=== PATIENT | male | born 1970 | race Caucasian/White ===

== ENCOUNTER 2017-10-04 12:43 | Emergency (ER) | payer BC, OTHER ==
[~2017-10-04] VITALS: Ht 170.2 cm; Wt 82.6 kg
[2017-10-04 12:55] VITALS: TEMP 36.9; Ht 170.2 cm; Wt 82.6 kg
[2017-10-04] MEDS ORDERED: XYLOCAINE 1%/SOD BICARB 20 ML VIAL INFIL ONE (13:15)
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
[2017-10-04] MEDS ORDERED: DIPHTHERIA/TETANUS/PERTUSSIS 0.5 ML SYR/VIAL IM. ONE (14:30)
[2017-10-04 15:03] VITALS: BP 140/90; PULSE 91; O2SAT 98
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
== END 2017-10-04 15:05 | disposition home or self-care (01) ==
LOC: C.EDB 12:44 → C.EDD 15:05
DX: S01.81XA Laceration without foreign body of other part of head, initial encounter (principal); S60.221A Contusion of right hand, initial encounter; S60.222A Contusion of left hand, initial encounter; V98.3XXA Accident to, on or involving ski lift, initial encounter; R40.2412 Glasgow coma scale score 13-15, at arrival to emergency department; R03.0 Elevated blood-pressure reading, without diagnosis of hypertension

== ENCOUNTER 2017-10-10 06:58 | Emergency (ER) | payer OTHER ==
[~2017-10-10] VITALS: Ht 170.2 cm; Wt 81.6 kg
[2017-10-10 07:00] VITALS: BP 125/86; PULSE 76; TEMP 36.8; O2SAT 97; Ht 170.2 cm; Wt 81.6 kg
--- NOTE | 2017-10-10 07:19 | EMERGENCY ROOM VISIT NOTE ---
History First contact with patient: 07:03 Chief Complaint: SUTURE/STAPLE REMOVAL Stated Complaint: STITCH REMOVAL Nursing Triage Summary: pt has sutures in forehead has been 6 days . 8 sutures History of Present Illness The patient is a 47 year old male who presents to the Emergency Room for suture removal from a forehead laceration that was repaired by me 6 days ago. The patient denies any wound complications. Review of Systems Noncontributory Past Medical/Surgical History Medical Problems: (1) No significant past medical history Surgical Problems: (1) No history of previous surgery Family History No significant family history Social History Smoking Status: Never Smoker Alcohol Use: occasionally Marital Status: single Occupation Status: employed Current/Historical Medications No Active Prescriptions or Reported Meds Physical Exam Vital Signs Date Time Temp Pulse Resp B/P (MAP) Pulse Ox O2 Delivery O2 Flow Rate FiO2 10/10/17 07:00 36.8 76 18 125/86 97 Room Air Physical Exam HEENT: Examination shows a well-healed laceration without any overriding erythema, fluctuance, drainage or diastases. All sutures were removed without any complications. Medical Decision & Procedures ED Course The patient was provided additional verbal wound care instructions, including use of vitamin E oil and a high SPF factor sunblock to minimize scar darkening. Medical Decision Blood Pressure Screening Patient's blood pressure: Normal blood pressure Impression Primary Impression: Encounter for removal of sutures Additional Impression: Forehead laceration Departure Information Prescriptions No Active Prescriptions or Reported Meds Referrals Hang Ch M.D. (PCP) Patient Instructions [facility] Problem Qualifiers Additional Impression: Forehead laceration Encounter type: subsequent encounter Qualified Codes: S01.81XD - Laceration without foreign body of other part of head, subsequent encounter
== END 2017-10-10 07:25 | disposition home or self-care (01) ==
LOC: C.EDB 06:59 → C.EDA 07:25
DX: S01.81XD Laceration without foreign body of other part of head, subsequent encounter (principal); V98 Other specified transport accidents; Z48.02 Encounter for removal of sutures

== ENCOUNTER → 2018-05-08 | Outpatient (CLI) | payer OTHER ==
[2018-05-08 12:13] LABS: BASO % 0.3 %; BASO ABS # 0.02 K/uL (0-0.2); EOS % 0.5 %; EOS ABS # 0.03 K/uL (0-0.5); HEMATOCRIT 46.5 % (42-52); HEMOGLOBIN 15.8 g/dL (14.0-18.0); IG# 0.01 K/uL (0.00-0.02); LYMPH % 14.9 %; LYMPH ABS # 0.94 K/uL (1.2-3.4); MEAN CELL VOLUME 92.3 fL (80-100); MEAN CORPUSCULAR HEMOGLOBIN 31.3 pg (25-34); MEAN PLATELET VOLUME 11.1 fL (7.4-10.4); MONO % 8.7 %; MONO ABS # 0.55 K/uL (0.11-0.59); NEUT % 75.4 %; NEUT ABS # 4.77 K/uL (1.4-6.5); PLATELET COUNT 242 K/uL (130-400); RED CELL DISTRIBUTION WIDTH CV 12.5 % (11.5-14.5); RED CELL DISTRIBUTION WIDTH SD 42.3 fL (36.4-46.3); WHITE BLOOD COUNT 6.32 K/uL (4.8-10.8)
[2018-05-08 12:32] LABS: HEMOGLOBIN A1C 5.5 % (4.5-5.6)
[2018-05-08 12:39] LABS: BLOOD UREA NITROGEN 23 mg/dl (7-18); CALCIUM 8.7 mg/dl (8.5-10.1); CARBON DIOXIDE 27 mmol/L (21-32); CHOLESTEROL 246 mg/dl (0-200); CREATININE 1.22 mg/dl (0.60-1.40); GLUCOSE 83 mg/dl (70-99); LDL CHOLESTEROL CALCULATED 179 mg/dl; POTASSIUM 3.8 mmol/L (3.5-5.1); SODIUM 139 mmol/L (136-145)
== END | disposition home or self-care (01) ==
LOC: C.LAB1850 10:08
PROVIDERS: ATTEND Internal Medicine
DX: E78.00 Pure hypercholesterolemia, unspecified (principal)

== ENCOUNTER 2020-08-29 23:11 | Observation (INO) ==
[2020-08-29] MEDS ORDERED: KETOROLAC TROMETHAMINE 15 MG/ML VIAL IV STA (23:15)
[2020-08-29] MEDS ORDERED: SODIUM CHLORIDE 0.9% 1000ML 500 ML IV ONE (23:24)
[2020-08-29] MEDS ORDERED: ONDANSETRON INJ 2 MG/ML 2 ML VIAL IV STA (23:24)
--- NOTE | 2020-08-29 23:26 | Emergency Department Note ---
History of Present Illness General Chief complaint: Flank Pain Stated complaint: FLANK PAIN Time Seen by Provider: 08/29/20 23:15 History of Present Illness Maximum Pain Intensity: 9 This 50-year-old presents to the ER complaining of sudden onset of left flank pain Location: Left flank Quality: Painful Severity: Moderate Duration: Tonight Timing: Tonight Context: Patient was concerned and came in Modifying factors: better with nothing; worse with nothing Patient is a history of kidney stones. No urologist. No history of lithotripsy or stent placement the past. Patient denies chest pain, dyspnea, fevers, flulike illness, testicular or penile pain. Home Medications Home Medications Medication Instructions Recorded Confirmed Type atorvastatin 20 mg tablet 20 mg PO HS #90 tab 08/17/19 08/29/20 Rx Allergies Allergy/AdvReac Type Severity Reaction Status Date / Time No Known Allergies Allergy Unverified 08/29/20 23:24 Past Med/Surg History Medical History (Updated 08/30/20 @ 01:31 by Gary Mohr MD) Forehead laceration Hypercholesterolemia Hyperglycemia Surgical History (Updated 08/29/20 @ 23:25 by Porsche Cardenas PA-C) No pertinent past surgical history Social History Smoking Status: Never smoker Preferred Language: Egyptian Feels Safe at Home: Yes Review of Systems A total of 10 systems reviewed and were otherwise negative Physical Exam Vital Signs Vital Signs - 24 hr 08/29/20 23:12 08/29/20 23:50 08/30/20 01:39 Temperature 36.5 C Temperature Source Oral Pulse Rate 79 Pulse Rate [Right Finger] 90 Respiratory Rate 22 16 Respiratory Effort / Characteristics Non-Labored Spontaneous Respiratory Depth Normal Normal Blood Pressure 168/95 H Blood Pressure [Right Arm] 148/87 H Blood Pressure Mean 119 Blood Pressure Mean [Right Arm] 107 Blood Pressure Position [Right Arm] Lying Pulse Oximetry 98 98 98 Oxygen Delivery Method Room Air Room Air Room Air Sepsis New/Unexplained Change in Mental Status N/A Sepsis Action Taken by Nursing No Action Required VITALS: Vitals are noted on the nurse's note and reviewed by myself. Vital signs stable. GENERAL: Pleasant male who appears in pain, in no acute distress, nondi aphoretic, well-developed well-nourished. SKIN: Capillary reflex less than 2 seconds. HEENT: Normocephalic. PERRLA. EOMI. Nares patent. Mucous membranes moist. Neck is supple without nuchal rigidity. HEART: Regular rate and rhythm without murmurs gallops or rubs. LUNGS: Clear to auscultation bilaterally without wheezes, rales or rhonchi. No retractions or accessory muscle use. ABDOMEN: Positive bowel sounds x 4. Normal tympanic percussion. Soft, nontender, without masses or organomegaly. Pastor sign negative. No guarding or rebound tenderness. No CVA tenderness MUSCULOSKELETAL: No gross musculoskeletal defects. NEURO: Patient was alert and oriented to person place and time. No focal neurological deficits. Course Administered Medications Discontinued Medications Sodium Chloride (Nss 1000ml) 500 mls @ 999 mls/hr IV .Q31M ONE Stop: 08/29/20 23:54 Last Infusion: 08/30/20 01:10 Dose: 0 mls/hr Documented by: [id number] Admin: 08/29/20 23:30 Dose: 999 mls/hr Documented by: [id number] Ceftriaxone Sodium (Rocephin) 2,000 mg in 70 mls @ 140 mls/hr IV NOW STA Stop: 08/30/20 01:33 Last Admin: 08/30/20 01:15 Dose: 140 mls/hr Documented by: [id number] Ketorolac Tromethamine (Ketorolac Tromethamine 15 Mg/Ml Vial) 10 mg IV NOW STA Stop: 08/29/20 23:16 Last Admin: 08/29/20 23:29 Dose: 10 mg Documented by: [id number] Morphine Sulfate (Morphine Sulfate 4 Mg/Ml 1 Ml Carp\Vial) 4 mg IV NOW STA Stop: 08/30/20 01:05 Last Admin: 08/30/20 01:15 Dose: 4 mg Documented by: [id number] Ondansetron HCl (Ondansetron Inj 2 Mg/Ml 2 Ml Vial) 4 mg IV NOW STA Stop: 08/29/20 23:25 Last Admin: 08/29/20 23:34 Dose: 4 mg Documented by: [id number] Tamsulosin HCl (Tamsulosin Hcl 0.4 Mg Cap) 0.4 mg PO NOW ONE Stop: 08/30/20 01:06 Last Admin: 08/30/20 01:15 Dose: 0.4 mg Documented by: [id number] Medical Decision Making Medical Records Attestation: I reviewed the patient's medical records. Home Medications Current Medication List: was personally reviewed by me Laboratory Data Attestation: I reviewed the patient's lab results. Result diagrams: 08/29/20 23:28 08/29/20 23:28 Lab Results 08/29/20 08/29/20 08/29/20 Range/Units 23:24 23:28 23:28 WBC 10.13 (4.8-10.8) K/uL RBC 4.94 (4.7-6.1) M/uL Hgb 15.7 (14.0-18.0) g/dL Hct 46.6 (42-52) % MCV 94.3 (80-100) fL MCH 31.8 (25-34) pg MCHC 33.7 (32-36) g/dL RDW Std Deviation 41.6 (36.4-46.3) fL RDW Coeff of Carlos 12.2 (11.5-14.5) % Plt Count 267 (130-400) K/uL MPV 10.3 (7.4-10.4) fL Immature Gran % (Auto) 0.3 % Neut % (Auto) 76.7 % Lymph % (Auto) 14.7 % [place] % (Auto) 7.3 % Eos % (Auto) 0.7 % Baso % (Auto) 0.3 % Neut # (Auto) 7.77 H (1.4-6.5) K/uL Lymph # (Auto) 1.49 (1.2-3.4) K/uL [place] # (Auto) 0.74 H (0.11-0.59) K/uL Eos # (Auto) 0.07 (0-0.5) K/uL Baso # (Auto) 0.03 (0-0.2) K/uL Immature Gran # (Auto) 0.03 H (0.00-0.02) K/uL Sodium 139 (136-145) mmol/L Potassium 3.3 L (3.5-5.1) mmol/L Chloride 104 (98-107) mmol/L Carbon Dioxide 28 (21-32) mmol/L Anion Gap 7.0 (3-11) BUN 22 H (7-18) mg/dl Creatinine 1.65 H (0.6-1.4) mg/dl Est Cr Clr Drug Dosing 54.6 ml/min Est GFR ( Amer) 55.3 Est GFR (Non-Af Amer) 47.7 BUN/Creatinine Ratio 13.3 (10-20) Glucose 179 H (70-99) mg/dl Calcium 9.1 (8.5-10.1) mg/dl Total Bilirubin 0.6 (0.2-1) mg/dl AST 21 (15-37) U/L ALT 54 (12-78) U/L Alkaline Phosphatase 57 (45-117) U/L Total Protein 7.8 (6.4-8.2) gm/dl Albumin 4.2 (3.4-5.0) gm/dl Globulin 3.6 (2.5-4.0) gm/dl Albumin/Globulin Ratio 1.2 (0.9-2) Urine Color Yellow Urine Appearance Slightly Cloudy (Clear) Urine pH 5.5 (4.5-7.5) Ur Specific [place] >= 1.030 (1.000-1.030) Urine Protein 2+ H (Negative) Urine Glucose (UA) Negative (Negative) Urine Ketones Trace H (Negative) Urine Blood 3+ H (Negative) Urine Nitrite Negative (Negative) Urine Bilirubin Negative (Negative) Urine Urobilinogen Negative (Negative) Ur Leukocyte Esterase Negative (Negative) Urine RBC >30 H (0-4) /hpf Urine WBC 5-10 H (0-5) /hpf Ur Epithelial Cells 5-10 H (0-5) /lpf Calcium Oxalate Crystal Present A (None Prsent) Urine Bacteria 1+ H (Negative) Urine Mucus Present A (None Prsent) Imaging Data Attestation: I personally reviewed and interpreted this imaging study as follows: MDM Narrative Prior records/ancillary studies reviewed. Triage Nursing notes reviewed. The patient's history was concerning for left flank pain. Differential diagnosis: Etiologies such as renal colic, appendicitis, diverticulitis, mesenteric ischemia, aortic pathology, infections, inflammatory bowel disease, PUD, biliary pathology, UTI, as well as others were entertained. Physical examination findings: As above. ER treatment provided: Zofran, Toradol, IV fluids, Rocephin, morphine, Flomax On reassessment the patient felt better. Diagnostic interpretation by me: The labs revealed elevated creatinine 1.63. Urinalysis revealed hematuria and white blood cells with +1 bacteria concerning for possible infection Imaging studies: CT ABDOMEN & PELVIS Without Contrast: Mild left hydroureteronephrosis with 4 x 6 mm obstructing calculus in the distal left ureter just before the UVJ. Radiologist: Aneesh Nolen MD Consultation: A consultation was placed with Dr. Ledezma, hospitalist. The case was discussed and diagnostics were reviewed. The patient was evaluated in the ER for further treatment. It appears that the patient has isolated renal colic from a left sided stone with concerns for UTI. Patient started antibiotics. Medicine was consulted. H e will be evaluated for possible admission. No prior urine culture. He was afebrile nontoxic. By the evaluation outlined above emergent etiologies such as appendicitis, diverticulitis, mesenteric ischemia, aortic pathology, inflammatory bowel disease, PUD, biliary pathology, as well as others were deemed relatively unlikely. The pt informed about the findings as listed above. All questions were answered and pleased with the treatment. The chart was completed utilizing [employer] Speech voice recognition software. Grammatical errors, random word insertions, pronoun errors, and incomplete sentences are an occassional consequence of this system due to software limitations, ambient noise, and hardware issues. Any formal questions or concerns about the content, text, or information contained within the body of this dictation should be directly addressed to the physician grooming assistant for clarification. Impression & Plan Renal colic on left side, Ureterolithiasis, Acute UTI Discharge Plan Visit Data Chief Complaint: Flank Pain Stated Complaint: FLANK PAIN ED Provider: Cari Berrios ED Midlevel Provider: Porsche Cardenas Discharge Problem: Renal colic on left side, Ureterolithiasis, Acute UTI Patient Disposition: Admitted As Inpatient Condition: Good Forms Stand Alone Forms: My [employer] Prescriptions Prescriptions: No Action atorvastatin 20 mg tablet 20 mg PO HS Qty: 90 RF: 3 Referrals Referrals: Hang Ch MD [Primary Care Provider] -
[2020-08-29 23:31] LABS: Appearance Urine Slightly Cloudy (Clear); Blood Urine 3+ (Negative); Color Urine Yellow; Glucose Urine UA Negative (Negative); Ketones Urine Trace (Negative); Leukocyte Esterase Urine Negative (Negative); Nitrite Urine Negative (Negative); Protein Urine 2+ (Negative); Specific Gravity Urine >= 1.030 (1.000-1.030); Urobilinogen Urine Negative (Negative); pH Urine 5.5 (4.5-7.5)
[2020-08-29 23:42] LABS: Basophils # (auto) 0.03 K/uL (0-0.2); Basophils % (auto) 0.3 %; Eosinophils # (auto) 0.07 K/uL (0-0.5); Eosinophils % (auto) 0.7 %; Hematocrit (blood only) 46.6 % (42-52); Hemoglobin 15.7 g/dL (14.0-18.0); Immature Granulocytes # (auto) 0.03 K/uL (0.00-0.02); Immature Granulocytes % (auto) 0.3 %; Lymphocytes # (auto) 1.49 K/uL (1.2-3.4); Lymphocytes % (auto) 14.7 %; Mean Corpuscular Hemoglobin 31.8 pg (25-34); Mean Corpuscular Hgb Conc 33.7 g/dL (32-36); Mean Corpuscular Volume 94.3 fL (80-100); Mean Platelet Volume 10.3 fL (7.4-10.4); Monocytes # (auto) 0.74 K/uL (0.11-0.59); Monocytes % (auto) 7.3 %; Neutrophils # (auto) 7.77 K/uL (1.4-6.5); Neutrophils % (auto) 76.7 %; Platelet Count 267 K/uL (130-400); RDW Coefficient of Variation 12.2 % (11.5-14.5); RDW Standard Deviation 41.6 fL (36.4-46.3); Red Blood Count 4.94 M/uL (4.7-6.1); White Blood Count 10.13 K/uL (4.8-10.8)
[2020-08-29 23:47] LABS: Bilirubin Urine Negative (Negative); Ictotest Urine Negative (Negative)
[2020-08-29 23:51] LABS: Calcium Oxalate Crystals Urine Present (None Prsent); RBC Urine >30 /hpf (0-4)
[2020-08-29 23:52] LABS: Bacteria Urine 1+ (Negative); Mucus Urine Present (None Prsent)
[2020-08-30 00:03] LABS: Albumin Level 4.2 gm/dl (3.4-5.0); BUN Creatinine Ratio 13.3 (10-20); Calcium 9.1 mg/dl (8.5-10.1); Creatinine Clr Calc Pharmacy 54.6 ml/min; Est GFR (African American) 55.3; Est GFR (Non-African American) 47.7; Potassium 3.3 mmol/L (3.5-5.1)
[2020-08-30 00:06] LABS: Albumin Globulin Ratio 1.2 (0.9-2); Bilirubin,Total 0.6 mg/dl (0.2-1); Globulin 3.6 gm/dl (2.5-4.0); Total Protein 7.8 gm/dl (6.4-8.2)
[2020-08-30] MEDS ORDERED: cefTRIAXone SODIUM 2,000 MG/70 ML BAG IV STA (01:04)
[2020-08-30] MEDS ORDERED: MoRPHine SULFATE 4 MG/ML 1 ML CARP\\VIAL IV STA (01:04)
[2020-08-30] MEDS ORDERED: TAMSULOSIN HCL 0.4 MG CAP PO ONE (01:05)
--- NOTE | 2020-08-30 01:34 | History & Physical Report ---
Date of Service August 30, 2020 Assessment & Plan (1) Left nephrolithiasis: Jose Ramon is a 50-year-old male with a past medical history of kidney stones, hyperlipidemia, and elevated blood glucose who presented to the ED with left- sided flank pain. Left nephrolithiasis with hydronephrosis CT A/P: Mild left hydroutero nephrosis with 4 x 6 mm obstructing calculus in distal left ureter just proximal to the UVJ. No leukocytosis Creatinine acutely elevated as below UA with bacteria, calcium oxalate crystals, and blood UC pending Rocephin given in ED. Continue empiric Rocephin Urology consult for definitive management Flomax Hydromorphone 0.25 every 3 hours as needed Patient may benefit from a thiazide Hyperglycemia Glucose 179 on admission A1c pending No history of diabetes SSI weight-based Hyperlipidemia Continue atorvastatin 20 mg daily No other chronic medical conditions COVID-19 screening: No signs or symptoms of COVID-19, denies Covid exposure. Covid rapid ordered in anticipation of potential cystoscopy. DVT prophylaxis: SCDs, hold pharmacal prophylaxis for potential cystoscopy. FEN GI: N.p.o., NSS 125 cc/h CODE STATUS: Full code Disposition: Medical/surgical History of Present Illness Chief Complaint: Flank pain Primary Care Provider: Hang Ch MD Jose Ramon is a 50-year-old male with a past medical history of kidney stones, hyperlipidemia, and elevated blood glucose who presented to the ED with left- sided flank pain. Mr. Min reports around 8pm he developed sudden acute pain in his L back and flank and had difficulty urinating. Pain persisted for 2 hours and prompted him to come in for evaluation. He tried straining his urine with the strainer from his last stone, and though the urine was mostly yellow with maybe some pink. Has had some tingling/odd sensation when urinating with some stinger. No fevers or chills. Takes a statin for HLD, no other medications or chronic medical prob lems. No chest pain, chest pressure, palpiations, shortness of breath, cough, diarrhea, constipation, sinus congestion, change in taste or smell, or headache. Has a slightly dry mouth. mild nausea from pain, no vomiting. Similar episode: thinks he had a similar episode 1 year ago. Was seen on CT-Scan Stone disappeared/passed without intervention and has been well without pain until now, Tobacco: None. EtoH: 3x per week, glass of wine dinner. No recreational drugs or marijuana. Living Situation: Single, has his son 50% of the time. No sick contacts. No contact with covid positive person. Allergies: NKDA Medical history: As above Medications: Atorvastatin, no other medicines CODE STATUS: Full code Allergies Allergy/AdvReac Type Severity Reaction Status Date / Time No Known Allergies Allergy Unverified 08/29/20 23:24 Home Medications Home Medications Medication Instructions Recorded Confirmed Type atorvastatin 20 mg tablet 20 mg PO HS #90 tab 08/17/19 08/29/20 Rx Past Med/Surg History Medical History Forehead laceration Hypercholesterolemia Hyperglycemia Surgical History No pertinent past surgical history Social History Smoking Status: Never smoker Second Hand Exposure: No; Do You Dip or Chew Tobacco: No; Tobacco Cessation Education Requested by Patient: No Hx Alcohol Use: Yes Hx Substance Use: No Preferred Language: Nigerien Communication Ability: Effective Delivery Stock Clerk Required: No Beliefs That Will Affect Care: None Current Living Situation: Family Other Information That Helps Us Care for You: No Feels Safe at Home: Yes Safety Concerns: Feels Safe At This Time Assistive Devices: None Review of Systems Review of Systems: All systems reviewed & are unremarkable except as noted in HPI & below Physical Exam Physical Exam: General: A&Ox3. NAD. Cooperative. HEENT: Atraumatic, normocephalic. Pupils equal and reactive to light and accommodation. Visual acuity grossly intact. Hearing grossly intact. EOMs intact. Pulm: CTAB A&P. -wheezes, -rales, -rhonchi. Symmetrical chest rise. No increase work of breathing. No respiratory distress. Cardiac: RRR, -mrg. Radial pulses intact and symmetrical. Abdominal: Nontender, nondistended, soft. BS present. No right-sided CVA tenderness. Trace left-sided CVA tenderness, patient reports greatly improved from prior. 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 Sensation to soft touch intact bilaterally without deficit. Results & Data Results & Data ([facility]) Vital Signs (Past 12 Hours) Vital Signs Temp Pulse Resp BP Pulse Ox 08/29/20 23:50 98 08/29/20 23:12 36.5 C 79 22 168/95 H 98 Supervising Physician Co-Signing Physician Notes Attending addendum: I have physically seen this patient, have supervised the medical residents activities, and agree with the H&P unless as otherwise noted. Assessment and Plan: Distal left ureteral 4 x 6 mm stone/mild left hydroureteronephrosis- N.p.o. Ceftriaxone 2 g IV daily Follow urine culture and sensitivity Tamsulosin 0.4 mg p.o. daily NSS 80 mils per hour Dilaudid 0.25 mg IV every 3 hours as needed severe pain Consult urology Hyperglycemia- Glucose 179 upon admission. Patient Accu-Cheks AC and at bedtime/every 6 hours with NovoLog coverage per scale Remaining orders and notations as noted Resident Activity Tracking Resident Involvement: Resident Care Provided Care Provided: Adult Hospital Medicine
[2020-08-30] MEDS ORDERED: HYDROmorphone INJ 0.5 MG/0.5 ML SYR IV STA (03:07)
[2020-08-30] MEDS ORDERED: HYDROmorphone INJ 0.5 MG/0.5 ML SYR IV PRN ×2 (03:43→03:51)
[2020-08-30] MEDS ORDERED: ACETAMINOPHEN 325 MG TAB PO PRN (03:43)
[2020-08-30] MEDS: SODIUM CHLORIDE 0.9% 1000ML 1,000 ML IV SCH ×3 (04:30→20:17)
--- NOTE | 2020-08-30 07:24 | CT Scan Report ---
ABDOMEN AND PELVIS CT WITHOUT CONTRAST CT DOSE: 1051.73 mGy.cm HISTORY: Acute left-sided flank pain flank pain, ? stone TECHNIQUE: Multiaxial CT images of the abdomen and pelvis were performed without contrast. A dose lo wering technique was utilized adhering to the principles of ALARA. COMPARISON STUDY: CT abdomen and pelvis 06/15/2019 FINDINGS: Clear lung bases. No pneumatosis or pneumoperitoneum. Imaged inferior cardiac chambers are unremarkab le. Limited evaluation of the solid abdominal organs without the use of IV contrast. Within the limit ations of the study, the spleen, pancreas, adrenal glands, and mildly contracted gallbladder. Unremar kable. Hepatic steatosis. Scattered hepatic cysts redemonstrated measuring up to 2.3 cm. There is increased attenuation of the bilateral medullary pyramids. There are 2 nonobstructing renal calculi noted within the right kidney measuring up to 3 mm. There is mild left-sided hydroureteroneph rosis with reactive perinephric and periureteral stranding secondary to an obstructing 6 x 4 x 5 mm c alculus of the distal left ureter which is present 9 mm proximal to the ureterovesicular junction. No abdominal aortic aneurysm. Small fat filled left inguinal hernia. No adenopathy. Mild nonspecific distal esophageal wall thickening. No bowel obstruction or bowel wall thickening. Co lonic diverticulosis without acute diverticulitis. Normal appendix. Unremarkable soft tissues. Bones appear intact. There are no suspicious bone lesions. IMPRESSION: 1. Mild left-sided hydroureteronephrosis secondary to an obstructing 6 x 4 x 5 mm calculus of the lef t distal ureter just proximal to the ureterovesicular junction. 2. Nonobstructing right nephrolithiasis. 3. No bowel obstruction or bowel wall thickening. Normal appendix. 4. Colonic diverticulosis. 5. Hepatic steatosis. ACT 112: Negative or not required by law. The above report was generated using voice recognition software. It may contain grammatical, syntax o r spelling errors. Electronically signed by: Maxwell Barker M.D. 08/30/2020 7:23 AM
[2020-08-30] MEDS: TAMSULOSIN HCL 0.4 MG CAP PO SCH (07:51)
[2020-08-30 08:17] LABS: Basophils # (auto) 0.01 K/uL (0-0.2); Basophils % (auto) 0.1 %; Hematocrit (blood only) 42.3 % (42-52); Immature Granulocytes # (auto) 0.01 K/uL (0.00-0.02); Immature Granulocytes % (auto) 0.1 %; Lymphocytes # (auto) 0.72 K/uL (1.2-3.4); Lymphocytes % (auto) 8.7 %; Mean Corpuscular Hemoglobin 31.5 pg (25-34); Mean Corpuscular Hgb Conc 33.1 g/dL (32-36); Mean Corpuscular Volume 95.1 fL (80-100); Mean Platelet Volume 10.7 fL (7.4-10.4); Monocytes # (auto) 0.72 K/uL (0.11-0.59); Monocytes % (auto) 8.7 %; Neutrophils # (auto) 6.78 K/uL (1.4-6.5); Neutrophils % (auto) 82.4 %; Platelet Count 244 K/uL (130-400); RDW Coefficient of Variation 12.4 % (11.5-14.5); RDW Standard Deviation 43.3 fL (36.4-46.3); Red Blood Count 4.45 M/uL (4.7-6.1); White Blood Count 8.24 K/uL (4.8-10.8)
[2020-08-30 08:51] LABS: BUN Creatinine Ratio 13.5 (10-20); Calcium 8.6 mg/dl (8.5-10.1); Creatinine Clr Calc Pharmacy 54.7 ml/min; Est GFR (African American) 55.3; Est GFR (Non-African American) 47.7; Potassium 3.9 mmol/L (3.5-5.1)
--- NOTE | 2020-08-30 09:33 | Urology Consultation ---
Date of Consultation August 30, 2020 Assessment & Plan (1) Ureterolithiasis: (2) Left flank pain: 50-year-old male, with past medical history of kidney stones, hyperlipidemia, and elevated blood glucose, admitted with acute left flank pain secondary to obstructing 6 mm distal left ureteral stone. -Plan of care reviewed with Dr. Avitia. -Patient afebrile and currently without flank pain. -Labs reviewed - white count normal, creatinine elevated. -Urine culture pending, continue empiric antibiotic therapy and await culture. -No acute intervention indicated at this time. -Okay to resume diet today. -Plan for KUB to assess stone visibility. -Discussed in detail stone treatment options with patient including inpatient management versus outpatient management presuming he continues to feel well. -If he becomes symptomatic, recommend NPO after midnight for potential surgical intervention tomorrow. Please consult our service urgently if patient develops fever >101F, intractable pain or nausea, as this will necessitate urgent surgical intervention. Thank you for the consultation and we will continue to monitor closely with primary service. History of Present Illness Reason for Consultation: L nephrolithiasis with hydro and JELLY Attending Physician: Gavin Tran History of Present Illness 50-year-old male patient with past medical history of kidney stones, hyperlipidemia, and elevated blood glucose who presented to the ED with left- sided flank pain that began last evening around 8:00 pm. He reports associated pink urine and nausea with severe pain. Admitted with left distal ureteral stone. Urology consulted for left ureteral stone with hydronephrosis and elevated creatinine. Patient does have history of kidney stone, roughly one year ago. He did not require intervention at that time, felt to have passed stone. Has not followed with urologist in the past. Chart review: Afebrile Wbc 8.24 Creatinine 1.65 Urinalysis >30 rbc, 5-10 wbc, 5-10 epithelial, positive bacteria. Urine culture pending, patient currently on empiric IV Ceftriaxone. Imaging - CT abd/pelvis: IMPRESSION: 1. Mild left-sided hydroureteronephrosis secondary to an obstructing 6 x 4 x 5 mm calculus of the left distal ureter just proximal to the UVJ junction. 2. Nonobstructing right nephrolithiasis. 3. No bowel obstruction or bowel wall thickening. Normal appendix. 4. Colonic diverticulosis. 5. Hepatic steatosis Patient reports overall, he is feeling better. States he has not experienced left flank pain since he was in the emergency room. Last received IV pain medication at 0323 this morning. States he did experience pink colored urine yesterday. Also had episode of nausea with severe pain last evening. Currently, he denies any flank or abdominal pain. Denies dysuria or hematuria. Denies significant urinary frequency/urgency. Does report "tingling" when he urinates. Denies nausea or vomiting. Denies fevers or chills. He does not have known history of kidney stones. Has been NPO since midnight. Overall, feeling well. Denies additional urologic concerns today. Allergies Allergy/AdvReac Type Severity Reaction Status Date / Time No Known Allergies Allergy Unverified 08/29/20 23:24 Home Medications Home Medications Medication Instructions Recorded Confirmed Type atorvastatin 20 mg tablet 20 mg PO HS #90 tab 08/17/19 08/29/20 Rx Patient History Medical History Forehead laceration Hypercholesterolemia Hyperglycemia Surgical History No pertinent past surgical history Social History Smoking Status: Never smoker Second Hand Exposure: No; Do You Dip or Chew Tobacco: No; Tobacco Cessation Education Requested by Patient: No Hx Alcohol Use: Yes Hx Substance Use: No Preferred Language: Greek Communication Ability: Effective 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 Beliefs That Will Affect Care: None Current Living Situation: Family Other Information That Helps Us Care for You: No Feels Safe at Home: Yes Safety Concerns: Feels Safe At This Time Assistive Devices: None Review of Systems Constitutional: as per Subjective / HPI; no fever and no chills Eyes: no problem reported Ear, Nose, Mouth, Throat: no dizziness Respiratory: no cough and no dyspnea Cardiovascular: no chest pain and no edema Gastrointestinal: as per Subjective / HPI Genitourinary: + as per Subjective / HPI Musculoskeletal: as per Subjective / HPI Neurologic: no dizziness Endocrine: no fatigue Hematologic / Lymphatic: no easy bleeding and no easy bruising Physical Exam Constitutional: well developed and well nourished; no acute distress and not ill appearing Non-toxic appearing. ENMT: Ears: no external ear abnormality Neck: normal visual inspection and trachea midline Respiratory: normal respiratory effort and able to speak in complete sentences; no respiratory distress and no audible wheezes Cardiovascular: Extremities: no calf tenderness and no edema Gastrointestinal (Abdomen): Inspection/Auscultation: abdomen normal to inspection; abdomen not distended Percussion/Palpation: abdomen soft; abdomen nontender and no guarding Musculoskeletal: Moves all extremities without difficulty. Skin: No visible rashes, lesions, or wounds noted. Neurologic: moves all extremities and awake Psychiatric: Orientation: alert, oriented x 3 and cooperative Affect: euthymic affect Genitourinary: no CVA tenderness Results & Data ([facility]) Vital Signs (Past 12 Hours) Vital Signs Temp Pulse Pulse Resp BP BP Pulse Ox 08/30/20 07:44 36.6 C 90 20 144/79 H 97 08/30/20 03:30 36.6 C 84 16 135/79 96 08/30/20 03:27 88 16 100 08/30/20 03:00 89 16 139/87 100 08/30/20 01:39 90 16 148/87 H 98 08/29/20 23:50 98 08/29/20 23:12 36.5 C 79 22 168/95 H 98 PG Care Time/CCT Total # of Minutes Spent Total Time Spent with Patient: Total time spent is greater than 50% in coordination of care (as documented) at patient's floor/unit and/or counseling patient: Coding Level of Care Code 17235 Inpt Consult Level 4 Diagnoses Ureterolithiasis N20.1 Left flank pain R10.9
--- NOTE | 2020-08-30 10:42 | XRay Report ---
KUB HISTORY: Follow up study in a patient with left ureteral calculus left distal ureteral stone COMPARISON: CT abdomen and pelvis 08/30/2020 FINDINGS: The bowel gas pattern is non-obstructive. There is no organomegaly. Tiny right-sided renal calculi redemonstrated. 6 mm calculus of the distal left ureter is unchanged. Pelvic basin phlebolit h redemonstrated. No pneumoperitoneum or pneumatosis. No fracture. IMPRESSION: 1. Unchanged positioning of the 6 mm left distal ureteral calculus 2. Right nephrolithiasis. ACT 112: Negative or not required by law. The above report was generated using voice recognition software. It may contain grammatical, syntax o r spelling errors. Electronically signed by: Maxwell Barker M.D. 08/30/2020 10:41 AM
[2020-08-30] MEDS ORDERED: ATORVASTATIN 20 MG TAB PO SCH (21:00)
[2020-08-31] MEDS ORDERED: cefTRIAXone SODIUM 2,000 MG in DEXTROSE 5% 50 ML IV SCH (01:00)
[2020-08-31] MEDS: SODIUM CHLORIDE 0.9% 1000ML 1,000 ML IV SCH (04:41)
--- NOTE | 2020-08-31 06:13 | Billing Data ---
Date of Service August 31, 2020 Coding Level of Care Code 77572 Initial Inpt Care Lvl 2
[2020-08-31] MEDS: TAMSULOSIN HCL 0.4 MG CAP PO SCH (08:10)
--- NOTE | 2020-08-31 09:46 | Urology Progress Note ---
Date of Service August 31, 2020 Assessment & Plan (1) Renal colic on left side: Distal left ureteral calculus; right punctate calculi Asymptomatic Plan for discharge home Outpatient follow-up, possible ESWL Admission and Anticipated Discharge Date Admission Date: August 30, 2020 Subjective 50-year-old male admitted secondary to left renal colic and a distal left ureteral calculus He has been asymptomatic since yesterday morning He had a KUB this morningstone visible, not yet passed Also has 2 punctate stones in the right kidney He prefers to avoid surgery and would like to go home to attempt trial of passage Review of Systems Review of Systems: All systems reviewed & are unremarkable except as noted in HPI & below Physical Exam Constitutional: well developed and well nourished Neck: neck nontender Respiratory: normal respiratory effort; no respiratory distress and does not use accessory muscles Cardiovascular: Rate/Rhythm: regular rate Vessels: radial pulses present Extremities: no edema Gastrointestinal (Abdomen): Inspection/Auscultation: abdomen normal to inspection Percussion/Palpation: abdomen soft; abdomen nontender and no guarding Musculoskeletal: Head/Neck/Chest: normocephalic and head atraumatic Extremities: extremities normal to inspection Skin: no rashes and no lesions Trauma: no evidence of skin trauma Neurologic: awake; not obtunded Speech / Cognition: normal speech Motor/Sensory: no tremor Psychiatric: Orientation: alert and oriented x 3 Genitourinary: no CVA tenderness Lymphatic: no lymphadenopathy Results & Data ([facility]) Vital Signs (Past 12 Hours) Vital Signs Temp Pulse Resp BP Pulse Ox 08/31/20 08:13 36.6 C 63 16 133/84 97 08/30/20 23:44 36.6 C 78 18 118/75 97 PG Care Time/CCT Total # of Minutes Spent Total Time Spent with Patient: Total time spent is greater than 50% in coordination of care (as documented) at patient's floor/unit and/or counseling patient: Coding Level of Care Code 19364 Subseq Hosp Care Lvl 2 Diagnoses Renal colic on left side N23
--- NOTE | 2020-08-31 11:49 | Medical Student Progress Note ---
Date of Service August 31, 2020 Assessment & Plan (1) Left nephrolithiasis: The labs and imaging show a 6mm stone in the L ureter which is consistent with the pt's presenation. The pt's pain has since resolved and recent KUB shows the stone has not moved. Ston has not yet passed. Refer to Urology note for recommendations. -Considering D/C today if blood Cx come back negative since the pt is asymptomatic. Pt would like to be seen in the outpatient setting for possible trial of passage or Extracorporeal shockwave lithotripsy. -Pending Blood Cx, ceftriaxone should be D/C. -Pt was counseled on kidney stone prevention such as staying hydrated, reducing sodium, and reducing intake of stone forming foods. Should f/u with urology. -Monitor Cr and BUN for improvement of JELLY. (2) Acute UTI: Cultures pending. D/c Abx as results arrive. (3) Hyperglycemia: Pt denies Hx of diabetes. Blood glucose is down today from 178 to 109. -Continue monitoring. F/u with PCP in outpatient setting recommended Admission and Anticipated Discharge Date Admission Date: August 30, 2020 Subjective Pt is a 50 yo M with a PMH of kidney stones that came to the ER last night w/ L flank pain an some difficulty urinating. No fevers or chills but pain was unbearable. In ER, CT showed a 6mm kidney stone obstructing the L ureter along w/ 2 other smaller 2-3 stones in the L kidney. Today pt is much improved. Describes pain as a 0/10 and has had no problems urinating. The dysuria and "tingling" has resolved. Pt is looking forward to go home today and will seek treatment for the stone in the outpatient setting. Review of Systems Constitutional: no fever, no chills and no sweats Respiratory: no cough Cardiovascular: no chest pain and no palpitations Gastrointestinal: no abdominal pain, no bloating, no nausea and no vomiting Genitourinary: + as per Subjective / HPI Physical Exam Constitutional: WD/WN, vitals as above Eyes: PERRL, conjunctivae normal, anicteric sclerae ENMT: external ear and nose normal, oropharynx normal Neck: trachea midline, no thyromegaly normal visual inspection Respiratory: normal respiratory effort, lungs clear to auscultation Cardiovascular: RRR, no murmur, no edema Gastrointestinal (Abdomen): normal bowel sounds, soft, nontender, no hepatosplenomegaly Results & Data ([facility]) Vital Signs (Past 12 Hours) Vital Signs Temp Pulse Resp BP BP Pulse Ox 08/31/20 10:51 36.6 C 63 16 133/84 121/72 97 08/31/20 08:13 36.6 C 63 16 133/84 97 08/30/20 23:44 36.6 C 78 18 118/75 97 Laboratory Results CBC is WNL. Slightly low RBC (4.45) CMP shows elevated Cr at 1.65 and BUN of 22. UA showed 2+Protein, 3+ blood, 1+ bacteria Urine Cx- Pending Laboratory Results WBC 8.24 K/uL (4.8-10.8) 08/30/20 07:47 RBC 4.45 M/uL (4.7-6.1) L 08/30/20 07:47 Hgb 14.0 g/dL (14.0-18.0) 08/30/20 07:47 Hct 42.3 % (42-52) 08/30/20 07:47 MCV 95.1 fL (80-100) 08/30/20 07:47 MCH 31.5 pg (25-34) 08/30/20 07:47 MCHC 33.1 g/dL (32-36) 08/30/20 07:47 RDW Std Deviation 43.3 fL (36.4-46.3) 08/30/20 07:47 RDW Coeff of Carlos 12.4 % (11.5-14.5) 08/30/20 07:47 Plt Count 244 K/uL (130-400) 08/30/20 07:47 MPV 10.7 fL (7.4-10.4) H 08/30/20 07:47 Immature Gran % (Auto) 0.1 % 08/30/20 07:47 Neut % (Auto) 82.4 % 08/30/20 07:47 Lymph % (Auto) 8.7 % 08/30/20 07:47 [place] % (Auto) 8.7 % 08/30/20 07:47 Eos % (Auto) 0.0 % 08/30/20 07:47 Baso % (Auto) 0.1 % 08/30/20 07:47 Neut # (Auto) 6.78 K/uL (1.4-6.5) H 08/30/20 07:47 Lymph # (Auto) 0.72 K/uL (1.2-3.4) L 08/30/20 07:47 [place] # (Auto) 0.72 K/uL (0.11-0.59) H 08/30/20 07:47 Eos # (Auto) 0.00 K/uL (0-0.5) 08/30/20 07:47 Baso # (Auto) 0.01 K/uL (0-0.2) 08/30/20 07:47 Immature Gran # (Auto) 0.01 K/uL (0.00-0.02) 08/30/20 07:47 Sodium 140 mmol/L (136-145) 08/30/20 07:47 Potassium 3.9 mmol/L (3.5-5.1) D 08/30/20 07:47 Chloride 109 mmol/L (98-107) H 08/30/20 07:47 Carbon Dioxide 26 mmol/L (21-32) 08/30/20 07:47 Anion Gap 5.0 (3-11) 08/30/20 07:47 BUN 22 mg/dl (7-18) H 08/30/20 07:47 Creatinine 1.65 mg/dl (0.6-1.4) H 08/30/20 07:47 Est Cr Clr Drug Dosing 54.7 ml/min 08/30/20 07:47 Est GFR ( Amer) 55.3 08/30/20 07:47 Est GFR (Non-Af Amer) 47.7 08/30/20 07:47 BUN/Creatinine Ratio 13.5 (10-20) 08/30/20 07:47 Glucose 109 mg/dl (70-99) H 08/30/20 07:47 Calcium 8.6 mg/dl (8.5-10.1) 08/30/20 07:47 Total Bilirubin 0.6 mg/dl (0.2-1) 08/29/20 23:28 AST 21 U/L (15-37) 08/29/20 23:28 ALT 54 U/L (12-78) 08/29/20 23:28 Alkaline Phosphatase 57 U/L (45-117) 08/29/20 23:28 Total Protein 7.8 gm/dl (6.4-8.2) 08/29/20 23:28 Albumin 4.2 gm/dl (3.4-5.0) 08/29/20 23:28 Globulin 3.6 gm/dl (2.5-4.0) 08/29/20 23:28 Albumin/Globulin Ratio 1.2 (0.9-2) 08/29/20 23:28 Urine Color Yellow 08/29/20 23:24 Urine Appearance Slightly Cloudy (Clear) 08/29/20 23:24 Urine pH 5.5 (4.5-7.5) 08/29/20 23:24 Ur Specific [place] >= 1.030 (1.000-1.030) 08/29/20 23:24 Urine Protein 2+ (Negative) H 08/29/20 23:24 Urine Glucose (UA) Negative (Negative) 08/29/20 23:24 Urine Ketones Trace (Negative) H 08/29/20 23:24 Urine Blood 3+ (Negative) H 08/29/20 23:24 Urine Nitrite Negative (Negative) 08/29/20 23:24 Urine Bilirubin Negative (Negative) 08/29/20 23:24 Urine Urobilinogen Negative (Negative) 08/29/20 23:24 Ur Leukocyte Esterase Negative (Negative) 08/29/20 23:24 Urine RBC >30 /hpf (0-4) H 08/29/20 23:24 Urine WBC 5-10 /hpf (0-5) H 08/29/20 23:24 Ur Epithelial Cells 5-10 /lpf (0-5) H 08/29/20 23:24 Calcium Oxalate Crystal Present (None Prsent) A 08/29/20 23:24 Urine Bacteria 1+ (Negative) H 08/29/20 23:24 Urine Mucus Present (None Prsent) A 08/29/20 23:24 COVID-19 Eval Order Covid19 [facility] 08/30/20 04:30 SARS-CoV-2, RNA, NAAT NEGATIVE (NEGATIVE) 08/30/20 04:[address]- 6mm stone obstructing L ureter. 2 other 3mm non-obstructing stones in kidney KUB- stone position unchanged
== END 2020-08-31 12:04 | disposition home or self-care (01) ==
LOC: ED 23:11 → 3N 08-30 02:16 → SUATTDRO 08-30 02:16 → INTOOBSV 08-30 02:16 → 3N 08-30 03:27